=== PATIENT | female | born 1945 | race Caucasian/White ===

== ENCOUNTER 2016-07-16 19:48 | Inpatient (IN) | payer MEDICARE, OTHER ==
[~2016-07-16] VITALS: Ht 160 cm; Wt 55.0 kg
--- NOTE | 2016-07-16 20:27 | PHYS DOC ---
Past Medical History Past Medical History: Other Additional Past Medical Histor: macular degeneration Past Surgical History: No Surgical History Alcohol Use: None Drug Use: None Adult General Chief Complaint Chief Complaint: MECHANICAL FALL HPI HPI Patient is a 71 year old female who presents by EMS for mechanical fall with abrasions to her knees. She could not get up, so she crawled to her phone and called her family who called EMS for her. She denies pain, LOC, headache, neck pain, chest pain, dyspnea, abdominal pain, dizziness, numbness, tingling, focal weakness, dysuria, n/v, f/c, diarrhea. States she is minimally active at baseline and is becoming more weak and was recommended PT by her PCP recently. Family is at bedside and very concerned for her safety at home as she lives alone. They have been trying to get her to seek help or physical therapy for some time, but she has been resistant. Review of Systems Review of Systems Constitutional: Denies fever or chills [] Eyes: Denies change in visual acuity, redness, or eye pain [] HENT: Denies nasal congestion or sore throat [] Respiratory: Denies cough or shortness of breath [] Cardiovascular: No additional information not addressed in HPI [] GI: Denies abdominal pain, nausea, vomiting, bloody stools or diarrhea [] : Denies dysuria or hematuria [] Musculoskeletal: Denies back pain or joint pain [] Integument: Denies rash or skin lesions [] Neurologic: Denies headache, focal weakness or sensory changes [] Endocrine: Denies polyuria or polydipsia [] Allergies Allergies Allergies Coded Allergies Type Severity Reaction Last Updated Verified No Known Drug Allergies 07/16/16 No Physical Exam Physical Exam Constitutional: Well developed, well nourished, no acute distress, non-toxic appearance. [] HENT: Normocephalic, atraumatic, bilateral external ears normal, oropharynx moist, no oral exudates, nose normal. [] Eyes: PERRLA, EOMI. [] Neck: Normal range of motion, no tenderness, supple. [] Cardiovascular:Heart rate regular rhythm [] Lungs & Thorax: Bilateral breath sounds clear to auscultation [] Abdomen: Bowel sounds normal, soft, no tenderness. [] Skin: Warm, dry, no erythema, no rash. [] Back: No tenderness, no CVA tenderness. [] Extremities: No tenderness, ROM intact, no edema. Has erythema to bilateral knees with small area of nonbleeding abrasion to right knee [] Neurologic: Alert and oriented X 3, normal motor function, normal sensory function, no focal deficits noted. [] Psychologic: Affect normal, judgement normal, mood normal. [] Current Patient Data Vital Signs Vital Signs Date Time Temp Pulse Resp B/P Pulse Ox O2 Delivery O2 Flow Rate FiO2 07/16/16 21:30 70 16 116/59 96 Room Air 07/16/16 19:55 97.6 97.6 Lab Values Laboratory Tests Test 07/16/16 20:30 07/16/16 21:00 White Blood Count 16.9x10^3/uL (4.0-11.0) H Red Blood Count 4.44x10^6/uL (3.50-5.40) Hemoglobin 12.8g/dL (12.0-15.5) Hematocrit 39.6% (36.0-47.0) Mean Corpuscular Volume 89fL (79-100) Mean Corpuscular Hemoglobin 29pg (25-35) Mean Corpuscular Hemoglobin Concent 32g/dL (31-37) Red Cell Distribution Width 14.3% (11.5-14.5) Platelet Count 268x10^3/uL (140-400) Neutrophils (%) (Auto) 85% (31-73) H Lymphocytes (%) (Auto) 8% (24-48) L Monocytes (%) (Auto) 6% (0-9) Eosinophils (%) (Auto) 0% (0-3) Basophils (%) (Auto) 0% (0-3) Neutrophils # (Auto) 14.4x10^3uL (1.8-7.7) H Lymphocytes # (Auto) 1.4x10^3/uL (1.0-4.8) Monocytes # (Auto) 1.0x10^3/uL (0.0-1.1) Eosinophils # (Auto) 0.0x10^3/uL (0.0-0.7) Basophils # (Auto) 0.1x10^3/uL (0.0-0.2) Segmented Neutrophils % 73% (35-66) H Band Neutrophils % 13% (0-9) H Lymphocytes % 9% (24-48) L Monocytes % 4% (0-10) Basophils % 1% (0-3) Platelet Estimate Adequate (ADEQUATE) Sodium Level 144mmol/L (136-145) Potassium Level 3.8mmol/L (3.5-5.1) Chloride Level 106mmol/L (98-107) Carbon Dioxide Level 26mmol/L (21-32) Anion Gap 12 (6-14) Blood Urea Nitrogen 28mg/dL (7-20) H Creatinine 1.3mg/dL (0.6-1.0) H Estimated GFR (Cockcroft-Gault) 40.4 Glucose Level 132mg/dL (70-99) H Calcium Level 9.5mg/dL (8.5-10.1) Urine Collection Type Unknown Urine Color Yellow Urine Clarity Clear Urine pH 5.5 Urine Specific [place] 1.020 Urine Protein Negativemg/dL (NEG-TRACE) Urine Glucose (UA) Negativemg/dL (NEG) Urine Ketones (Stick) Tracemg/dL (NEG) Urine Blood Trace (NEG) Urine Nitrite Negative (NEG) Urine Bilirubin Negative (NEG) Urine Urobilinogen Dipstick 0.2mg/dL (0.2 mg/dL) Urine Leukocyte Esterase Small (NEG) Urine RBC 3-5/HPF (0-2) Urine WBC 5-10/HPF (0-4) Urine Squamous Epithelial Cells Mod/LPF Urine Transitional Epithelial Cells Few/LPF Urine Bacteria 0/HPF (0-FEW) Urine Hyaline Casts Moderate/HPF Urine Mucus Mod/LPF Laboratory Tests 07/16/16 20:30 Laboratory Tests 07/16/16 20:30 EKG EKG EKG as interpreted by me as normal sinus rhythm, rate 88, no ST-T changes, normal intervals, no ectopy Course & Med Decision Making Course & Med Decision Making Pertinent Labs and Imaging studies reviewed. (See chart for details) Workup is unremarkable. She is unable to ambulate under her own power. Will admit for patient safety concern and PT/OT evaluation. Discussed with Dr. Porter, who agrees to admit. Dragon Disclaimer Dragon Disclaimer This electronic medical record was generated, in whole or in part, using a voice recognition dictation system. Departure Departure Impression: Primary Impression: Generalized weakness Disposition: ADMITTED INPATIENT Condition: STABLE Arie GIVENS MD Jul 16, 2016 20:27
[2016-07-16 20:47] LABS: BASO # 0.1 x10^3/uL (0.0-0.2); BASO % 0 % (0-3); EOS % 0 % (0-3); HEMATOCRIT 39.6 % (36.0-47.0); HEMOGLOBIN 12.8 g/dL (12.0-15.5); LYMPH # 1.4 x10^3/uL (1.0-4.8); LYMPH % 8 % (24-48); MEAN CORPUSCULAR HEMOGLOBIN 29 pg (25-35); MEAN CORPUSCULAR HGB CONC 32 g/dL (31-37); MEAN CORPUSCULAR VOLUME 89 fL (79-100); MONO % 6 % (0-9); NEUT % 85 % (31-73); PLATELET COUNT 268 x10^3/uL (140-400); RED BLOOD COUNT 4.44 x10^6/uL (3.50-5.40); RED CELL DISTRIBUTION WIDTH 14.3 % (11.5-14.5); WHITE BLOOD COUNT 16.9 x10^3/uL (4.0-11.0)
[2016-07-16 20:56] LABS: CALCIUM 9.5 mg/dL (8.5-10.1); CREATININE 1.3 mg/dL (0.6-1.0); GFR 40.4; POTASSIUM 3.8 mmol/L (3.5-5.1)
[2016-07-16 21:16] LABS: BILIRUBIN,URINE NEGATIVE (NEG); GLUCOSE,URINE NEGATIVE (NEG); NITRITE,URINE NEGATIVE (NEG); PH,URINE 5.5; PROTEIN,URINE NEGATIVE (NEG-TRACE); UROBILINOGEN,URINE 0.2 mg/dL (0.2 mg/dL)
[2016-07-16 21:29] LABS: BACTERIA,URINE 0 /HPF (0-FEW); SQUAMOUS EPITHELIAL CELL,UR MOD /LPF
[2016-07-16 21:36] LABS: % BASOS 1 % (0-3); PLT ESTIMATE ADEQUATE (ADEQUATE)
[2016-07-16] MEDS ORDERED: NEOMY/BACITR/POLYMYXIN OINT PACKET. TP ONE (21:45)
[2016-07-16 22:20] VITALS: BP 119/55
[2016-07-16] MEDS ORDERED: ACETAMINOPHEN 325 MG TABLET. PO PRN (22:30)
[2016-07-16] MEDS ORDERED: ONDANSETRON PF 4 MG/2 ML VIAL. IV PRN (22:30)
[2016-07-17] MEDS ORDERED: MULT1TAB52 PO (00:39)
[2016-07-17 02:50] VITALS: BP 116/67
--- NOTE | 2016-07-17 06:33 | EKG ---
[facility] [address] [place] [address] Test Date: 2016-07-16 Test Time: 19:55:33 Pat Name: MESSI BISWAS Department: Room: Gender: F [employer] D[employer]: : 1945 Requested By: Arie GIVENS Order Number: [id number] Reading MD: Measurements Intervals [place] Rate: 88 P: 44 [place]: 138 QRS: 63 QRSD: 68 T: 42 QT: 360 QTc: 439 Interpretive Statements SINUS RHYTHM RI6.01 Unconfirmed report No previous ECG available for comparison
[2016-07-17 07:00] VITALS: BP 119/70
--- NOTE | 2016-07-17 07:52 | PDOC ---
Provider Note Provider Note [id number] ALIS BREWSTER MD Jul 17, 2016 07:52
--- NOTE | 2016-07-17 08:48 | HP ---
ADMIT DATE: CHIEF COMPLAINT: Weakness after a fall. HISTORY OF PRESENT ILLNESS: A 71-year-old white female, who was last seen in our office in March 2016 with generalized weakness. MRI of the brain showed no acute change and laboratory studies were unremarkable at that time, but she has had increasing immobility, weakness and difficulty caring for herself. She has macular degeneration, walks very slowly and limited fashion because of the visual handicap. She felt, was unable to get up and brought by ambulance and admitted for evaluation and disposition ____ progressive weakness. There has been an ongoing cough, but no hemoptysis, fever, chills, vomiting, diarrhea, pain, confusion or other symptoms. PAST MEDICAL HISTORY: None. MEDICATIONS: None. ALLERGIES: None. PAST SURGICAL HISTORY: No known surgery. LABORATORY STUDIES: On 03/2016, were normal. MRI was reported unremarkable except for microvascular changes. SOCIAL HISTORY: She has been smoker most of her adult life. She is , lives alone. Nondrinker to my knowledge. FAMILY HISTORY: Unremarkable. REVIEW OF SYSTEMS: No other known problems. OBJECTIVE: ENT: She has dentures in place. Eyes, ears and pharynx normal. NECK: Revealed no carotid bruits, nodes, thyroid enlargement or masses. LUNGS: Clear with decreased breath sounds. No wheezing or tachypnea. CARDIOVASCULAR: Regular rate. No irregular beat, murmur or tachycardia. BREASTS: Not examined. ABDOMEN: Benign, soft, nontender. EXTREMITIES: Good pedal and radial pulses, 1+ clubbing. No joint or skin lesions. SKIN: Turgor mildly decreased. NEUROLOGIC: She moves all extremities. She has no obvious cerebellar dysfunction. Cranial nerves 2-12 appear to be intact. She knows the month, year, and location and responds appropriately. She is mildly weak in all 4 extremities. No parkinsonian stiffness is noted, but she does have one of the decreased vocal response and mild dysphonia, reflexes are mildly diminished, not hyperactive. ASSESSMENT: Generalized progressive weakness and clinically has chronic obstructive pulmonary disease and macular degeneration. PLAN: Chest x-ray to make sure there is no underlying neoplasm, leading to the paraneoplastic syndrome. Vitamin D level and will give supplemental for vitamin D for now and antisocial disposition as well. LAIS BREWSTER MD DR: EUGENIO/laura JOB#: [id number] / [id number]
[2016-07-17] MEDS: MULTIVITAMIN with MINERAL TABLET. PO SCH ×2 (08:59→09:06)
[2016-07-17] MEDS ORDERED: ERGOCALCIFEROL (VITAMIN D2) 50,000 UNIT CAPSULE PO SCH (09:00)
--- NOTE | 2016-07-17 09:33 | RAD ---
EXAM: Chest one view. HISTORY: Cough, weakness, smoking history. COMPARISON: None. FINDINGS: A frontal view of the chest is obtained. There are no confluent infiltrates. There is no pneumothorax or pleural effusion. The heart is not enlarged. There are atherosclerotic calcifications of the aorta. IMPRESSION: 1. No confluent infiltrates.
[2016-07-17 10:45] VITALS: BP 108/63
[2016-07-17 14:43] VITALS: BP 115/70
[2016-07-17 19:00] VITALS: BP 99/51
[2016-07-17 23:00] VITALS: BP 105/42
[2016-07-18 03:00] VITALS: BP 133/61
[2016-07-18 07:00] VITALS: BP 112/60
[2016-07-18 11:30] VITALS: BP 107/66
[2016-07-18 15:19] VITALS: BP 111/63
[2016-07-18 19:40] VITALS: BP 100/58
--- NOTE | 2016-07-18 21:44 | PDOC ---
GENERAL General: vss and afebrile. awake and alert and minimizes ambulatory difficulties. Therapy recommends snu at id. Elevated wbc on admission and a cough that has been present for a year or so. will ask pulmonary opinion as I can't explain leukocytosis and has normal cxr and urine eval. otherwise same. Problems: VITAL SIGNS Vital Signs: Vital Signs Date Time Temp Pulse Resp B/P Pulse Ox O2 Delivery O2 Flow Rate FiO2 07/18/16 20:00 Room Air 07/18/16 19:40 97.8 67 18 100/58 95 97.8 I & O I & O Intake and Output 07/18/16 07:00 Intake Total 358 ml Output Total 550 ml Balance -192 ml Intake Oral 358 ml Output Urine Total 550 ml ALLERGIES Allergies: Allergies Coded Allergies Type Severity Reaction Last Updated Verified No Known Drug Allergies 07/16/16 No MEDS Medications: Current Medications Medications (Trade) Dose Ordered Sig/Ezekiel Start Time Stop Time Status Last Admin Dose Admin Acetaminophen (Tylenol) 650 mg PRN Q4HRS PRN 07/16/16 22:30 07/17/16 22:29 DC Ergocalciferol (Vitamin D2) 50,000 unit Fr 07/17/16 09:00 07/17/16 08:59 50,000 UNIT Multivitamins (Thera M Plus) 1 tab DAILY 07/17/16 09:00 07/17/16 09:06 1 TAB Neomycin/ Polymyxin/ Bacitracin (Triple Antibiotic Ointment) 1 pkt 1X ONCE 07/16/16 21:45 07/16/16 21:47 DC 07/16/16 21:56 1 PKT Ondansetron HCl (Zofran) 4 mg PRN Q8HRS PRN 07/16/16 22:30 07/17/16 22:29 DC MELISSA CARRILLO MD Jul 18, 2016 21:44
[2016-07-18 23:45] VITALS: BP 105/62
[2016-07-19 03:31] VITALS: BP 112/56
[2016-07-19 05:39] LABS: BASO # 0.1 x10^3/uL (0.0-0.2); BASO % 1 % (0-3); EOS % 1 % (0-3); HEMATOCRIT 39.7 % (36.0-47.0); HEMOGLOBIN 13.1 g/dL (12.0-15.5); LYMPH # 3.3 x10^3/uL (1.0-4.8); LYMPH % 38 % (24-48); MEAN CORPUSCULAR HEMOGLOBIN 29 pg (25-35); MEAN CORPUSCULAR HGB CONC 33 g/dL (31-37); MEAN CORPUSCULAR VOLUME 89 fL (79-100); MONO % 8 % (0-9); NEUT % 52 % (31-73); PLATELET COUNT 244 x10^3/uL (140-400); RED BLOOD COUNT 4.46 x10^6/uL (3.50-5.40); RED CELL DISTRIBUTION WIDTH 14.3 % (11.5-14.5); WHITE BLOOD COUNT 8.8 x10^3/uL (4.0-11.0)
[2016-07-19 06:03] LABS: ALBUMIN/GLOBULIN RATIO 0.8 (1.0-1.7); CALCIUM 8.8 mg/dL (8.5-10.1); CREATININE 0.7 mg/dL (0.6-1.0); GFR 82.5; POTASSIUM 4.1 mmol/L (3.5-5.1); TOTAL BILIRUBIN 0.4 mg/dL (0.2-1.0); TOTAL PROTEIN 6.6 g/dL (6.4-8.2)
[2016-07-19 07:00] VITALS: BP 132/69
[2016-07-19] MEDS: MULTIVITAMIN with MINERAL TABLET. PO SCH (08:08)
--- NOTE | 2016-07-19 10:48 | PDOC ---
GENERAL General: vss and afebrile. wbc decreased to 8.8K. awake and alert. on further questioning had had increased difficulty with walking, talking, and writing for last year or so. will ask for neuro input and await pulm input on cough. Problems: VITAL SIGNS Vital Signs: Vital Signs Date Time Temp Pulse Resp B/P Pulse Ox O2 Delivery O2 Flow Rate FiO2 07/19/16 07:00 97.0 90 16 132/69 96 Room Air 97.0 I & O I & O Intake and Output 07/19/16 07:00 Intake Total 360 ml Output Total 1 ml Balance 359 ml Intake Oral 360 ml Stool Total 1 ml # Bowel Movements 1 ALLERGIES Allergies: Allergies Coded Allergies Type Severity Reaction Last Updated Verified No Known Drug Allergies 07/16/16 No MEDS Medications: Current Medications Medications (Trade) Dose Ordered Sig/Ezekiel Start Time Stop Time Status Last Admin Dose Admin Acetaminophen (Tylenol) 650 mg PRN Q4HRS PRN 07/16/16 22:30 07/17/16 22:29 DC Ergocalciferol (Vitamin D2) 50,000 unit Fr 07/17/16 09:00 07/17/16 08:59 50,000 UNIT Multivitamins (Thera M Plus) 1 tab DAILY 07/17/16 09:00 07/19/16 08:08 1 TAB Neomycin/ Polymyxin/ Bacitracin (Triple Antibiotic Ointment) 1 pkt 1X ONCE 07/16/16 21:45 07/16/16 21:47 DC 07/16/16 21:56 1 PKT Ondansetron HCl (Zofran) 4 mg PRN Q8HRS PRN 07/16/16 22:30 07/17/16 22:29 DC LAB Lab: Laboratory Tests Test 07/19/16 04:50 White Blood Count 8.8x10^3/uL (4.0-11.0) Red Blood Count 4.46x10^6/uL (3.50-5.40) Hemoglobin 13.1g/dL (12.0-15.5) Hematocrit 39.7% (36.0-47.0) Mean Corpuscular Volume 89fL (79-100) Mean Corpuscular Hemoglobin 29pg (25-35) Mean Corpuscular Hemoglobin Concent 33g/dL (31-37) Red Cell Distribution Width 14.3% (11.5-14.5) Platelet Count 244x10^3/uL (140-400) Neutrophils (%) (Auto) 52% (31-73) Lymphocytes (%) (Auto) 38% (24-48) Monocytes (%) (Auto) 8% (0-9) Eosinophils (%) (Auto) 1% (0-3) Basophils (%) (Auto) 1% (0-3) Neutrophils # (Auto) 4.5x10^3uL (1.8-7.7) Lymphocytes # (Auto) 3.3x10^3/uL (1.0-4.8) Monocytes # (Auto) 0.7x10^3/uL (0.0-1.1) Eosinophils # (Auto) 0.1x10^3/uL (0.0-0.7) Basophils # (Auto) 0.1x10^3/uL (0.0-0.2) Sodium Level 146mmol/L (136-145) Potassium Level 4.1mmol/L (3.5-5.1) Chloride Level 110mmol/L (98-107) Carbon Dioxide Level 27mmol/L (21-32) Anion Gap 9 (6-14) Blood Urea Nitrogen 24mg/dL (7-20) Creatinine 0.7mg/dL (0.6-1.0) Estimated GFR (Cockcroft-Gault) 82.5 BUN/Creatinine Ratio 34 (6-20) Glucose Level 99mg/dL (70-99) Calcium Level 8.8mg/dL (8.5-10.1) Total Bilirubin 0.4mg/dL (0.2-1.0) Aspartate Amino Transf (AST/SGOT) 67U/L (15-37) Alanine Aminotransferase (ALT/SGPT) 42U/L (14-59) Alkaline Phosphatase 63U/L (46-116) Total Protein 6.6g/dL (6.4-8.2) Albumin 3.0g/dL (3.4-5.0) Albumin/Globulin Ratio 0.8 (1.0-1.7) MELISSA CARRILLO MD Jul 19, 2016 10:48
[2016-07-19 11:00] VITALS: BP 109/54
--- NOTE | 2016-07-19 11:26 | PDOC ---
Provider Note Provider Note dictated ZOLTAN VELARDE MD Jul 19, 2016 11:26
--- NOTE | 2016-07-19 11:52 | CONS ---
DATE OF CONSULTATION: ATTENDING PHYSICIAN: Dr. Porter. REASON FOR CONSULTATION: COPD. HISTORY OF PRESENT ILLNESS: The patient is a 71-year-old female who smoked for 45 to 50 years. She smokes cigars. She was brought into the hospital with generalized weakness. MRI of the brain previously had shown no acute abnormalities. Her chest x-ray was clear. She denies any shortness of breath or chest pain. She said she has a mild cough. No fever, no chills, no vomiting, no diarrhea. I have reviewed her imaging studies, and her chest x-ray did not show any acute infiltrates. Consultation was requested for further evaluation and management. Her white cell count initially was high at 16.9, and now it is 8.8. PAST MEDICAL HISTORY: Significant for COPD, unknown FEV1. PAST SURGICAL HISTORY: No recent surgeries. ALLERGIES: None. CURRENT MEDICATIONS: Reviewed as listed in the MRAD. REVIEW OF SYSTEMS: Twelve-point systems were obtained, pertinent positives discussed in history of present illness, otherwise noncontributory. All systems that were negative were reviewed as well. SOCIAL HISTORY: Smoked cigars for 50 years. PHYSICAL EXAMINATION: GENERAL: She is awake, following commands. VITAL SIGNS: Blood pressure stable, afebrile, pulse oximetry 96% on room air. NECK: Supple. LUNGS: Diminished breath sounds. No crackles, no wheezes. CARDIOVASCULAR: Regular rate. ABDOMEN: Soft. EXTREMITIES: With no pitting edema. LABORATORY DATA: Reviewed. Sodium 146, potassium 4.1, BUN 24, and creatinine 0.7. This is much improved since admission. White cell count 8.8, hemoglobin 13.1, and platelets are 244. IMPRESSION: 1. Chronic obstructive pulmonary disease seems to be clinically compensated. Unknown FEV1. She smoked cigars for 45 to 50 years. 2. Generalized weakness requiring hospitalization, probably related to dehydration. Her BUN and creatinine were abnormal on admission, which is now improved with hydration. 3. Chest x-ray with no evidence of any lung mass. RECOMMENDATIONS: 1. Add bronchodilators. 2. PFTs as an outpatient. 3. No further recommendation from a pulmonary standpoint. Discharge planning per PCP. ZOLTAN VELARDE MD DR: LUIS A/laura JOB#: [id number] / [id number] MTDD
[2016-07-19] MEDS: IPRATRPIUM/ALBUTEROL 0.5/2.5MG 3 ML NEBU. NEB SCH ×3 (12:45→19:23)
--- NOTE | 2016-07-19 12:59 | PDOC2 ---
NEUROLOGY CONSULT Date of Admission Date of Admission DATE: 07/19/16 TIME: 12:48 Reason for Consult Reason for Consult: Dysarthria, gait disorder Referring Physician Referring Physician: Dr. Saeed PCP: Dr. Porter Source Source: Chart review, Patient History of Present Illness History of Present Illness The patient is a 71-year-old right-handed female admitted for frequent falls as well as COPD. She says that she has been having trouble with speaking, writing, swallowing, and walking for up to the last year. She had an MRI of the brain in March which was reportedly negative. She has never seen a neurologist. She denies any history of stroke, seizure, head injury, or family history of neurological disease. The symptoms have been slowly progressing, there is not one single time of onset. There is no diurnal fluctuations such as from neuromuscular junction disease. She denies any cognitive problems. She lives in assisted living and does all of her own cooking, cleaning, shopping, and finances. Past Medical History Pulmonary: COPD ENT: Other (macular degneration) Past Surgical History Past Surgical History: No pertinent history Family History Family History: No pertinent hx Social History Social History , smokes cigars, no alcohol Current Medications Current Medications Current Medications Neomycin/ Polymyxin/ Bacitracin (Triple Antibiotic Ointment) 1 pkt 1X ONCE TP Last administered on 07/16/16 21:56; Start 07/16/16 at 21:45; Stop 07/16/16 at 21: 47; Status DC Ondansetron HCl (Zofran) 4 mg PRN Q8HRS PRN IV NAUSEA/VOMITING; Start 07/16/16 at 22:30; Stop 07/17/16 at 22:29; Status DC Acetaminophen (Tylenol) 650 mg PRN Q4HRS PRN PO FEVER; Start 07/16/16 at 22:30; Stop 07/17/16 at 22:29; Status DC Multivitamins (Thera M Plus) 1 tab DAILY PO Last administered on 07/19/16 08: 08; Start 07/17/16 at 09:00 Ergocalciferol (Vitamin D2) 50,000 unit Fr PO Last administered on 07/17/16 08 :59; Start 07/17/16 at 09:00 Albuterol/ Ipratropium (Duoneb) 3 ml RTQID NEB ; Start 07/19/16 at 12:00 Active Scripts Active Reported Multivitamins (Multivitamin) 1 Each Tablet 1 Tab PO DAILY Allergies Allergies: Coded Allergies: No Known Drug Allergies (Unverified , 07/16/16) ROS Review of System Patient denies fevers, chills, weight loss, dyspnea, angina, abdominal pain, change in bowels, or dysuria. 14 point review of systems is negative. Physical Exam Physical Examination PHYSICAL EXAMINATION: Vital signs: see above. General appearance is normal and in no acute distress. HEENT: Normocephalic and nontraumatic. Eyes, nose, ears, and throat are unremarkable. Neck is supple. No lymphadenopathy. No bruits are heard over the carotid artery. No crepitus. NEUROLOGICAL EXAMINATION: Mental Status Examination: Alert. Oriented to place and person, knows the month and year. Answers questions and follows commends. Speech is dysarthric, she did have trouble remembering 3 of 3 objects at 3 minutes but finally did get the third one correct. She has trouble with serial sevens. Pupils are equal round and reactive to light and accommodation. Extraocular movements are intact. Visual field exam shows no defect on the direct confrontation. No motor or sensory deficits on the facial exam. Uvula in the midline and the soft palate elevated symmetrically. No deviation of the tongue to any direction. Gross hearing is normal. Shoulder shrug normal. Muscle tone is normal. Muscle strength is 5. Deep tendon reflexes are 1+ all around. There are bilateral grasp reflexes. Plantar reflex is with flexion response bilaterally. [id number] test performance is accurate. Alternative movements are accurate. Gait is apraxic. Sensory exam shows no deficits. No cerebellar signs are elicited. Vitals VITALS Vital Signs Date Time Temp Pulse Resp B/P Pulse Ox O2 Delivery O2 Flow Rate FiO2 07/19/16 11:00 97.7 76 16 109/54 96 Room Air 97.7 Labs Labs Laboratory Tests Test 07/19/16 04:50 White Blood Count 8.8x10^3/uL (4.0-11.0) Red Blood Count 4.46x10^6/uL (3.50-5.40) Hemoglobin 13.1g/dL (12.0-15.5) Hematocrit 39.7% (36.0-47.0) Mean Corpuscular Volume 89fL (79-100) Mean Corpuscular Hemoglobin 29pg (25-35) Mean Corpuscular Hemoglobin Concent 33g/dL (31-37) Red Cell Distribution Width 14.3% (11.5-14.5) Platelet Count 244x10^3/uL (140-400) Neutrophils (%) (Auto) 52% (31-73) Lymphocytes (%) (Auto) 38% (24-48) Monocytes (%) (Auto) 8% (0-9) Eosinophils (%) (Auto) 1% (0-3) Basophils (%) (Auto) 1% (0-3) Neutrophils # (Auto) 4.5x10^3uL (1.8-7.7) Lymphocytes # (Auto) 3.3x10^3/uL (1.0-4.8) Monocytes # (Auto) 0.7x10^3/uL (0.0-1.1) Eosinophils # (Auto) 0.1x10^3/uL (0.0-0.7) Basophils # (Auto) 0.1x10^3/uL (0.0-0.2) Sodium Level 146mmol/L (136-145) Potassium Level 4.1mmol/L (3.5-5.1) Chloride Level 110mmol/L (98-107) Carbon Dioxide Level 27mmol/L (21-32) Anion Gap 9 (6-14) Blood Urea Nitrogen 24mg/dL (7-20) Creatinine 0.7mg/dL (0.6-1.0) Estimated GFR (Cockcroft-Gault) 82.5 BUN/Creatinine Ratio 34 (6-20) Glucose Level 99mg/dL (70-99) Calcium Level 8.8mg/dL (8.5-10.1) Total Bilirubin 0.4mg/dL (0.2-1.0) Aspartate Amino Transf (AST/SGOT) 67U/L (15-37) Alanine Aminotransferase (ALT/SGPT) 42U/L (14-59) Alkaline Phosphatase 63U/L (46-116) Total Protein 6.6g/dL (6.4-8.2) Albumin 3.0g/dL (3.4-5.0) Albumin/Globulin Ratio 0.8 (1.0-1.7) Laboratory Tests Test 07/19/16 04:50 White Blood Count 8.8x10^3/uL (4.0-11.0) Red Blood Count 4.46x10^6/uL (3.50-5.40) Hemoglobin 13.1g/dL (12.0-15.5) Hematocrit 39.7% (36.0-47.0) Mean Corpuscular Volume 89fL (79-100) Mean Corpuscular Hemoglobin 29pg (25-35) Mean Corpuscular Hemoglobin Concent 33g/dL (31-37) Red Cell Distribution Width 14.3% (11.5-14.5) Platelet Count 244x10^3/uL (140-400) Neutrophils (%) (Auto) 52% (31-73) Lymphocytes (%) (Auto) 38% (24-48) Monocytes (%) (Auto) 8% (0-9) Eosinophils (%) (Auto) 1% (0-3) Basophils (%) (Auto) 1% (0-3) Neutrophils # (Auto) 4.5x10^3uL (1.8-7.7) Lymphocytes # (Auto) 3.3x10^3/uL (1.0-4.8) Monocytes # (Auto) 0.7x10^3/uL (0.0-1.1) Eosinophils # (Auto) 0.1x10^3/uL (0.0-0.7) Basophils # (Auto) 0.1x10^3/uL (0.0-0.2) Sodium Level 146mmol/L (136-145) Potassium Level 4.1mmol/L (3.5-5.1) Chloride Level 110mmol/L (98-107) Carbon Dioxide Level 27mmol/L (21-32) Anion Gap 9 (6-14) Blood Urea Nitrogen 24mg/dL (7-20) Creatinine 0.7mg/dL (0.6-1.0) Estimated GFR (Cockcroft-Gault) 82.5 BUN/Creatinine Ratio 34 (6-20) Glucose Level 99mg/dL (70-99) Calcium Level 8.8mg/dL (8.5-10.1) Total Bilirubin 0.4mg/dL (0.2-1.0) Aspartate Amino Transf (AST/SGOT) 67U/L (15-37) Alanine Aminotransferase (ALT/SGPT) 42U/L (14-59) Alkaline Phosphatase 63U/L (46-116) Total Protein 6.6g/dL (6.4-8.2) Albumin 3.0g/dL (3.4-5.0) Albumin/Globulin Ratio 0.8 (1.0-1.7) Assessment/Plan Assessment/Plan Impression: 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 I find no evidence of peripheral neuropathy, radiculopathy, neuromuscular junction disease, motor neuron disease , cerebrovascular disease, but myelopathy is still possible. Recommendations: Repeat brain MRI, this time with contrast Cervical MRI Additional laboratory studies. Note TSH and sedimentation rate were normal Continue rehabilitation modalities, adding on speech therapy for evaluation and treatment of both cognitive and swallowing problems. Consider correction unit placement Additional studies depending on the results of these. Thank you for letting me help with the patient's care. SABI MOFFETT MD Jul 19, 2016 12:59
[2016-07-19 15:00] VITALS: BP 110/53
[2016-07-19] MEDS: NEOMY/BACITR/POLYMYXIN OINT PACKET. TP SCH ×2 (18:30→20:13)
[2016-07-19 19:46] VITALS: BP 103/57
[2016-07-19 23:07] VITALS: BP 99/53
[2016-07-20 03:50] VITALS: BP 102/61
[2016-07-20 07:00] VITALS: BP 120/66
[2016-07-20] MEDS: IPRATRPIUM/ALBUTEROL 0.5/2.5MG 3 ML NEBU. NEB SCH ×3 (07:30→16:00)
--- NOTE | 2016-07-20 08:34 | PDOC ---
Provider Note Provider Note labs ok, no new sxs- no overt hyperactive DTR- mri brain/ cerv spine pending- no new meds- dc plan pending re family decision- cxr clear re chronic cough, smoker ALIS BREWSTER MD Jul 20, 2016 08:34
[2016-07-20] MEDS: NEOMY/BACITR/POLYMYXIN OINT PACKET. TP SCH ×2 (09:08→20:31)
[2016-07-20] MEDS: MULTIVITAMIN with MINERAL TABLET. PO SCH (09:08)
--- NOTE | 2016-07-20 10:00 | PDOC ---
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 I find no evidence of peripheral neuropathy, radiculopathy, neuromuscular junction disease, motor neuron disease , cerebrovascular disease, but myelopathy is still possible. Plan Await tests Continue rehabilitation modalities, Consider [facility] unit placement Additional studies depending on the results of these. Subjective No complaints Objective Vital Signs Date Time Temp Pulse Resp B/P Pulse Ox O2 Delivery O2 Flow Rate FiO2 07/20/16 08:00 Room Air 07/20/16 07:32 97 07/20/16 07:00 97.4 79 17 120/66 97.4 Intake and Output 07/20/16 07:00 Intake Total 725 ml Output Total 1151 ml Balance -426 ml Intake Oral 725 ml Output Urine Total 1150 ml Stool Total 1 ml PHYSICAL EXAM Alert. Oriented to time, place and person. Spastic dysarthria, maybe a component of scanning speech PERRL. EOMI. CN: no focal findings. Muscle tone: normal. Muscle strength: 5/5 DTR: 1+. Also has bilateral grasp reflexes Plantar reflex: flexor Gait: not examined. Sensory exam: no abnormal findings. No cerebellar signs elicited. Review of Relevant I have reviewed the following items ale (where applicable) has been applied. Labs Laboratory Tests Test 07/19/16 04:50 White Blood Count 8.8x10^3/uL (4.0-11.0) Red Blood Count 4.46x10^6/uL (3.50-5.40) Hemoglobin 13.1g/dL (12.0-15.5) Hematocrit 39.7% (36.0-47.0) Mean Corpuscular Volume 89fL (79-100) Mean Corpuscular Hemoglobin 29pg (25-35) Mean Corpuscular Hemoglobin Concent 33g/dL (31-37) Red Cell Distribution Width 14.3% (11.5-14.5) Platelet Count 244x10^3/uL (140-400) Neutrophils (%) (Auto) 52% (31-73) Lymphocytes (%) (Auto) 38% (24-48) Monocytes (%) (Auto) 8% (0-9) Eosinophils (%) (Auto) 1% (0-3) Basophils (%) (Auto) 1% (0-3) Neutrophils # (Auto) 4.5x10^3uL (1.8-7.7) Lymphocytes # (Auto) 3.3x10^3/uL (1.0-4.8) Monocytes # (Auto) 0.7x10^3/uL (0.0-1.1) Eosinophils # (Auto) 0.1x10^3/uL (0.0-0.7) Basophils # (Auto) 0.1x10^3/uL (0.0-0.2) Sodium Level 146mmol/L (136-145) Potassium Level 4.1mmol/L (3.5-5.1) Chloride Level 110mmol/L (98-107) Carbon Dioxide Level 27mmol/L (21-32) Anion Gap 9 (6-14) Blood Urea Nitrogen 24mg/dL (7-20) Creatinine 0.7mg/dL (0.6-1.0) Estimated GFR (Cockcroft-Gault) 82.5 BUN/Creatinine Ratio 34 (6-20) Glucose Level 99mg/dL (70-99) Calcium Level 8.8mg/dL (8.5-10.1) Total Bilirubin 0.4mg/dL (0.2-1.0) Aspartate Amino Transf (AST/SGOT) 67U/L (15-37) Alanine Aminotransferase (ALT/SGPT) 42U/L (14-59) Alkaline Phosphatase 63U/L (46-116) Total Protein 6.6g/dL (6.4-8.2) Albumin 3.0g/dL (3.4-5.0) Albumin/Globulin Ratio 0.8 (1.0-1.7) Microbiology 07/16/16 Urine Culture - Final, Complete 07/16/16 Urine Culture Result 1 (LORI) - Final, Complete Medications Current Medications Neomycin/ Polymyxin/ Bacitracin (Triple Antibiotic Ointment) 1 pkt 1X ONCE TP Last administered on 07/16/16t 21:56; Start 07/16/16 at 21:45; Stop 07/16/16 at 21: 47; Status DC Ondansetron HCl (Zofran) 4 mg PRN Q8HRS PRN IV NAUSEA/VOMITING; Start 07/16/16 at 22:30; Stop 07/17/16 at 22:29; Status DC Acetaminophen (Tylenol) 650 mg PRN Q4HRS PRN PO FEVER; Start 07/16/16 at 22:30; Stop 07/17/16 at 22:29; Status DC Multivitamins (Thera M Plus) 1 tab DAILY PO Last administered on 07/20/16 09: 08; Start 07/17/16 at 09:00 Ergocalciferol (Vitamin D2) 50,000 unit Fr PO Last administered on 07/17/16 08 :59; Start 07/17/16 at 09:00; Stop 07/20/16 at 08:34; Status DC Albuterol/ Ipratropium (Duoneb) 3 ml RTQID NEB Last administered on 07/20/16 07:30; Start 07/19/16 at 12:00 Neomycin/ Polymyxin/ Bacitracin (Triple Antibiotic Ointment) 1 pkt BID TP Last administered on 07/20/16 09:08; Start 07/19/16 at 18:30 Active Scripts Active Reported Multivitamins (Multivitamin) 1 Each Tablet 1 Tab PO DAILY Vitals/I & O Vital Sign - Last 24 Hours 07/19/16 07/19/16 07/19/16 07/19/16 11:00 15:00 15:32 19:23 Temp 97.7 97.4 97.7 97.4 Pulse 76 72 Resp 16 18 B/P 109/54 110/53 Pulse Ox 96 97 99 99 O2 Delivery Room Air Room Air Room Air Room Air 07/19/16 07/19/16 07/19/16 07/20/16 19:46 20:15 23:07 03:50 Temp 98.2 97.3 97.6 98.2 97.3 97.6 Pulse 77 67 68 Resp 18 18 20 B/P 103/57 99/53 102/61 Pulse Ox 95 96 97 O2 Delivery Room Air Room Air Room Air Room Air 07/20/16 07/20/16 07/20/16 07:00 07:32 08:00 Temp 97.4 97.4 Pulse 79 Resp 17 B/P 120/66 Pulse Ox 96 97 O2 Delivery Room Air Room Air Room Air Intake and Output 07/19/16 07/19/16 07/20/16 15:00 23:00 07:00 Intake Total 725 ml 0 ml Output Total 801 ml 350 ml Balance -76 ml -350 ml SABI MOFFETT MD Jul 20, 2016 09:59
[2016-07-20 10:32] LABS: FOLATE 18.74 ng/ml (3.2-20.0)
[2016-07-20 11:00] VITALS: BP 105/66
[2016-07-20] MEDS ORDERED: GADOBUTROL 7.5 MMOL/7.5 ML VIAL IV ONE (13:15)
--- NOTE | 2016-07-20 13:20 | RAD ---
PROCEDURE MRI cervical spine without contrast HISTORY Unsteady gait, gait disorder TECHNIQUE Sagittal and axial T2, sagittal T1, sagittal STIR images were acquired of the cervical spine Contrast: None COMPARISON None FINDINGS There is motion degradation, limits accurate evaluation of the neural foramina. Cervical cord caliber is within normal limits without obvious or expansile signal abnormality, limited evaluation for subtle signal change due to motion artifact. There is moderate cervical dextroscoliosis. Cervical vertebral body stature is preserved. There is minimal grade 1 anterior spondylolisthesis at C3-4. There is mild to moderate degenerative disc disease C4-C5 and C5-C6 and minimally at C6-7. Trace posterior C5-C6 endplate edema is likely reactive/degenerative in etiology. There is no significant abnormality of the cervical medullary junction. C2-3: Spinal canal and neural foramina are adequate. C3-C4: There is fairly severe left facet degenerative change. There is minimal left uncovertebral degenerative change. Central canal is borderline 10 millimeters, very minimal narrowing of the far left lateral recess. Right neural foramen is adequate. There is at least moderate narrowing of the left neural foramen. C4-5: There is severe left facet hypertrophic change. Spinal canal and right neural foramen are adequate. There is at least moderate narrowing of the left neural foramen. C5-C6: There is buckling of the ligamentum flavum. There is posterior protrusion greatest centrally. Central canal is likely narrowed on the order of 8-9 millimeters. There is likely mild narrowing of the left neural foramen, right neural foramen probably adequate. C6-7: There is buckling of the ligamentum flavum. There is shallow posterior broad protrusion/bulge, central canal borderline 10 millimeters. Neural foramina are likely adequate. C7-T1: Spinal canal and neural foramina are adequate. IMPRESSION 1. There is mild spinal stenosis C5-C6. 2. Accurate evaluation of the neural foramina is limited due to motion degradation, suspected neural foramina compromise as stated greatest on the left at C3-C4 and C4-C5. 3. There is moderate cervical dextroscoliosis. There is minimal grade 1 anterior spondylolisthesis C3-4. 4. There is mild to moderate degenerative disc disease C4-5 and C5-C6 and to a lesser degree C6-7. 5. There is multilevel cervical facet degenerative change. Electronically signed by: Javy Rios MD (Jul 20, 2016 13:18:48)
--- NOTE | 2016-07-20 13:59 | RAD ---
PROCEDURE MRI brain without and with contrast. HISTORY Gait disorder, frontal lobe degeneration, unsteady gait with recent fall TECHNIQUE Multiplanar, multi sequential pre and post contrast MR imaging was performed of the brain. Contrast: 5 cc Gadavist COMPARISON None FINDINGS There is mild motion degradation. There is no restricted diffusion suggestive of a recent infarct or cytotoxic edema. There is no intra-axial mass effect, midline shift, extra-axial fluid collection, or nodular parenchymal or leptomeningeal enhancement. Ventricular size is within normal limits. There is mild generalized supratentorial atrophy. There is preservation of the major arterial intracranial flow voids at the skull base. There is patchy minimal anterior right ethmoid air cell mucosal thickening. 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 Cerebellar tonsils are normal in location. There is nonspecific mild heterogeneity of the marrow of non expanded clivus. There is no significant abnormality of the pituitary gland. There is mild fluid of the inferior right mastoid air cells, also tiny focus on the left. IMPRESSION 1. There is no evidence of recent infarct or abnormal intracranial enhancement. 2. There is mild generalized supratentorial atrophy. Electronically signed by: Javy Rios MD (Jul 20, 2016 13:58:33)
[2016-07-20 15:00] VITALS: BP 102/65
--- NOTE | 2016-07-20 15:53 | PDOC ---
PULMONARY PROGRESS NOTES Vitals Vital Signs Date Time Temp Pulse Resp B/P Pulse Ox O2 Delivery O2 Flow Rate FiO2 07/20/16 15:00 97.0 75 17 102/65 98 Room Air 97.0 Labs Laboratory Tests Test 07/19/16 04:50 07/20/16 04:40 White Blood Count 8.8x10^3/uL (4.0-11.0) Red Blood Count 4.46x10^6/uL (3.50-5.40) Hemoglobin 13.1g/dL (12.0-15.5) Hematocrit 39.7% (36.0-47.0) Mean Corpuscular Volume 89fL (79-100) Mean Corpuscular Hemoglobin 29pg (25-35) Mean Corpuscular Hemoglobin Concent 33g/dL (31-37) Red Cell Distribution Width 14.3% (11.5-14.5) Platelet Count 244x10^3/uL (140-400) Neutrophils (%) (Auto) 52% (31-73) Lymphocytes (%) (Auto) 38% (24-48) Monocytes (%) (Auto) 8% (0-9) Eosinophils (%) (Auto) 1% (0-3) Basophils (%) (Auto) 1% (0-3) Neutrophils # (Auto) 4.5x10^3uL (1.8-7.7) Lymphocytes # (Auto) 3.3x10^3/uL (1.0-4.8) Monocytes # (Auto) 0.7x10^3/uL (0.0-1.1) Eosinophils # (Auto) 0.1x10^3/uL (0.0-0.7) Basophils # (Auto) 0.1x10^3/uL (0.0-0.2) Sodium Level 146mmol/L (136-145) Potassium Level 4.1mmol/L (3.5-5.1) Chloride Level 110mmol/L (98-107) Carbon Dioxide Level 27mmol/L (21-32) Anion Gap 9 (6-14) Blood Urea Nitrogen 24mg/dL (7-20) Creatinine 0.7mg/dL (0.6-1.0) Estimated GFR (Cockcroft-Gault) 82.5 BUN/Creatinine Ratio 34 (6-20) Glucose Level 99mg/dL (70-99) Calcium Level 8.8mg/dL (8.5-10.1) Total Bilirubin 0.4mg/dL (0.2-1.0) Aspartate Amino Transf (AST/SGOT) 67U/L (15-37) Alanine Aminotransferase (ALT/SGPT) 42U/L (14-59) Alkaline Phosphatase 63U/L (46-116) Total Protein 6.6g/dL (6.4-8.2) Albumin 3.0g/dL (3.4-5.0) Albumin/Globulin Ratio 0.8 (1.0-1.7) Vitamin B12 Level 495pg/mL (247-911) Serum Folate 18.74ng/ml (3.2-20.0) Laboratory Tests Test 07/20/16 04:40 Vitamin B12 Level 495pg/mL (247-911) Serum Folate 18.74ng/ml (3.2-20.0) Medications Active Scripts Medications Dose Route/Sig Days Date Category Multivitamins (Multivitamin) 1 Each Tablet 1 Tab PO DAILY 07/17/16 Reported Impression . 1. Chronic obstructive pulmonary disease seems to be clinically compensated. Unknown FEV1. She smoked cigars for 45 to 50 years. 2. Generalized weakness requiring hospitalization, probably related to dehydration. Her BUN and creatinine were abnormal on admission, which is now improved with hydration. 3. Chest x-ray with no evidence of any lung mass. Plan . RECOMMENDATIONS: 1. Add bronchodilators. 2. PFTs as an outpatient. 3. No further recommendation from a pulmonary standpoint. Discharge planning per PCP. MICHELLE SANTOYO MD Jul 20, 2016 15:53
--- NOTE | 2016-07-20 17:59 | PDOC ---
PULMONARY PROGRESS NOTES Subjective does not want nebs Vitals Vital Signs Date Time Temp Pulse Resp B/P Pulse Ox O2 Delivery O2 Flow Rate FiO2 07/20/16 15:00 97.0 75 17 102/65 98 Room Air 97.0 ROS: No Nausea, No Chest Pain, No Abdominal Pain, No Increase Cough General: Alert Lungs: Clear Cardiovascular: S1, S2 Abdomen: Soft Neuro Exam: Alert Extremities: No Edema Skin: Warm, Dry Labs Laboratory Tests Test 07/19/16 04:50 07/20/16 04:40 White Blood Count 8.8x10^3/uL (4.0-11.0) Red Blood Count 4.46x10^6/uL (3.50-5.40) Hemoglobin 13.1g/dL (12.0-15.5) Hematocrit 39.7% (36.0-47.0) Mean Corpuscular Volume 89fL (79-100) Mean Corpuscular Hemoglobin 29pg (25-35) Mean Corpuscular Hemoglobin Concent 33g/dL (31-37) Red Cell Distribution Width 14.3% (11.5-14.5) Platelet Count 244x10^3/uL (140-400) Neutrophils (%) (Auto) 52% (31-73) Lymphocytes (%) (Auto) 38% (24-48) Monocytes (%) (Auto) 8% (0-9) Eosinophils (%) (Auto) 1% (0-3) Basophils (%) (Auto) 1% (0-3) Neutrophils # (Auto) 4.5x10^3uL (1.8-7.7) Lymphocytes # (Auto) 3.3x10^3/uL (1.0-4.8) Monocytes # (Auto) 0.7x10^3/uL (0.0-1.1) Eosinophils # (Auto) 0.1x10^3/uL (0.0-0.7) Basophils # (Auto) 0.1x10^3/uL (0.0-0.2) Sodium Level 146mmol/L (136-145) Potassium Level 4.1mmol/L (3.5-5.1) Chloride Level 110mmol/L (98-107) Carbon Dioxide Level 27mmol/L (21-32) Anion Gap 9 (6-14) Blood Urea Nitrogen 24mg/dL (7-20) Creatinine 0.7mg/dL (0.6-1.0) Estimated GFR (Cockcroft-Gault) 82.5 BUN/Creatinine Ratio 34 (6-20) Glucose Level 99mg/dL (70-99) Calcium Level 8.8mg/dL (8.5-10.1) Total Bilirubin 0.4mg/dL (0.2-1.0) Aspartate Amino Transf (AST/SGOT) 67U/L (15-37) Alanine Aminotransferase (ALT/SGPT) 42U/L (14-59) Alkaline Phosphatase 63U/L (46-116) Total Protein 6.6g/dL (6.4-8.2) Albumin 3.0g/dL (3.4-5.0) Albumin/Globulin Ratio 0.8 (1.0-1.7) Vitamin B12 Level 495pg/mL (247-911) Serum Folate 18.74ng/ml (3.2-20.0) Laboratory Tests Test 07/20/16 04:40 Vitamin B12 Level 495pg/mL (247-911) Serum Folate 18.74ng/ml (3.2-20.0) Medications Active Scripts Medications Dose Route/Sig Days Date Category Multivitamins (Multivitamin) 1 Each Tablet 1 Tab PO DAILY 07/17/16 Reported Impression . 1. Chronic obstructive pulmonary disease seems to be clinically compensated. Unknown FEV1. She smoked cigars for 45 to 50 years. 2. Generalized weakness 3. Chest x-ray with no evidence of any lung mass. Plan . d/c nebs will see MICHELLE GILBERT MD Jul 20, 2016 17:59
[2016-07-20 19:51] VITALS: BP 107/57
[2016-07-20 23:38] VITALS: BP 114/64
[2016-07-21 02:56] VITALS: BP 108/58
[2016-07-21 07:00] VITALS: BP 115/79
--- NOTE | 2016-07-21 08:20 | DISCH ---
DISCHARGE FINAL DIAGNOSIS Problems Medical Problems: (1) Generalized weakness Status: Acute CONDITION ON DISCHARGE: Stable SNF STAY <30 DAYS: Yes POST DISCHARGE ORDERS ACTIVITY ORDERS: No restrictions FOLLOW-UP PHYSICIAN FOLLOW-UP: ALIS Jeff MD Jul 21, 2016 08:20
--- NOTE | 2016-07-21 08:24 | PDOC ---
Provider Note Provider Note [id number] ALIS BREWSTER MD Jul 21, 2016 08:24
[2016-07-21] MEDS: NEOMY/BACITR/POLYMYXIN OINT PACKET. TP SCH (08:44)
[2016-07-21] MEDS: MULTIVITAMIN with MINERAL TABLET. PO SCH (08:44)
--- NOTE | 2016-07-21 09:21 | DS ---
DATE OF DISCHARGE: 07/21/2016 HOSPITAL SUMMARY: A 71-year-old white female admitted with progressive weakness and mild confusion and inability to care for self in the home. Chemistry profile showed a mildly elevated creatinine of 1.3, came down to 0.7 with hydration. CBC and sed rate were normal. B12, folate, and TSH were normal. Vitamin D level was borderline, leveled at 27. MRI of the brain showed normal findings with aging and general atrophy. MRI of the cervical spine did not show any overt spiral cord compression or any lesions. The chest x-ray was clear. Urine culture had only urogenital remigio present. She was treated with therapy evaluation and neurologic evaluation. Dr. Brambila feels she has a component of frontotemporal dementia, but no sign of any brain or spinal cord problems or he thinks this is certainly treatment. She has been [facility] with the insistence of her daughters and as she is no longer able to care for self safely, taking no medications aside from multivitamins. FINAL DIAGNOSES: 1. Generalized weakness secondary to deconditioning. 2. Chronic tobacco abuse. 3. Frontotemporal dementia, mild. OPERATIONS, PROCEDURES, AND COMPLICATIONS: None. CONSULTATIONS: Dr. Aparicio and Dr. Brambila. DISPOSITION: Continue daily multivitamins as they are only her current medication. She will follow up with Dr. Brambila in one month regarding her dementia, and I will see her on as needed basis. Continue tobacco avoidance or lessen her COPD component and her prognosis is guarded. ALIS BREWSTER MD DR: EUGENIO/laura JOB#: [id number] / [id number]
--- NOTE | 2016-07-21 09:21 | CONS ---
DATE OF CONSULTATION: 07/20/2016 The patient's room is 524. REQUESTING PHYSICIAN: Dr. Baker. REASON FOR CONSULTATION: Groin abscess. HISTORY OF PRESENT ILLNESS: The patient is a pleasant 20-year-old gentleman with history of morbid obesity and diabetes. He takes metformin. He states a week ago, he developed areas of right buttock cheek that was somewhat of a blister. Over time, it increased in size. He popped it, said he got bloody fluid from it, but since that time, the area is becoming more painful, red and swollen. He presented to [facility] initially and was transferred to [facility]. He was given a dose of vancomycin and clindamycin in the Emergency Room. Laboratory values were obtained; however, did not accompany him. Currently, he is lying in bed. He states he did have fever. He has no headaches, no sore throat, no sinus issues. No cough or chest pain. No nausea, vomiting, diarrhea, dysuria, frequency, or urgency. He denies any trauma to the area. No falls. No rashes. PAST MEDICAL HISTORY: Positive for morbid obesity, diabetes, hypertension. PAST SURGICAL HISTORY: Denies any past surgical history. REVIEW OF SYSTEMS: Otherwise negative except mentioned above. ALLERGIES: No known drug allergies. SOCIAL HISTORY: He is a smoker, although he states currently he is on a patch. He works IT, also goes to school and has a cat at home. FAMILY HISTORY: Positive for diabetes. CURRENT MEDICATIONS: Include vancomycin, metformin. Other meds are available and had been reviewed in the chart. PHYSICAL EXAMINATION: VITAL SIGNS: He is afebrile, temperature 97.6, pulse 94, respirations 18, blood pressure 119/82, and satting 96% on room air. CONSTITUTIONAL: He is pleasant, cooperative. He is in no acute distress. He is super morbidly obese. He wears glasses. HEENT: Pupils are equal and reactive. Oral cavity, pharynx is clear. NECK: Full. Good range of motion, no JVD. LUNGS: Clear to auscultation bilaterally. HEART: S1, S2. ABDOMEN: Morbidly obese, soft, nontender, nondistended, positive bowel sounds. EXTREMITIES: No clubbing, cyanosis, or gross edema. SKIN: Warm to touch without generalized signs of rash. His right buttock area has an area of erythema. There is induration. There is no fluctuance. There is no drainage. There is some yeast. NEUROLOGIC: Nonfocal and appropriate, moves all extremities. Affect is pleasant. LABORATORY DATA: White count 13.8, hemoglobin 12.5, platelets 264, neutrophils 73, lymphs 17, glucose 168. Creatinine of 0.9. There are no radiological studies. IMPRESSION: 1. Buttock cellulitis with induration, no clear signs of abscess at this point. 2. Leukocytosis. 3. Morbid obesity. 4. Diabetes. RECOMMENDATIONS: He has not had any complications with any staph or strep infections. Denies any ill contacts. Therefore, we will discontinue the vancomycin given this area. We will start Unasyn as well as fluconazole, and we will follow up on his response and his labs. If this area does consolidate, he may need surgery. Thank you for allowing me to participate in the patient's care. Should you have any questions, please do not hesitate to contact me. COREY MCNAMARA MD DR: KYLE/laura JOB#: [id number] / [id number]
--- NOTE | 2016-07-21 09:48 | PDOC ---
PULMONARY PROGRESS NOTES Subjective does not want nebs Vitals Vital Signs Date Time Temp Pulse Resp B/P Pulse Ox O2 Delivery O2 Flow Rate FiO2 07/21/16 07:00 97.5 72 18 115/79 97 Room Air 97.5 ROS: No Nausea, No Chest Pain, No Abdominal Pain, No Increase Cough General: Alert Lungs: Clear Cardiovascular: S1, S2 Abdomen: Soft Neuro Exam: Alert Extremities: No Edema Skin: Warm, Dry Labs Laboratory Tests Test 07/20/16 04:40 Vitamin B12 Level 495pg/mL (247-911) Serum Folate 18.74ng/ml (3.2-20.0) Medications Active Scripts Medications Dose Route/Sig Days Date Category Multivitamins (Multivitamin) 1 Each Tablet 1 Tab PO DAILY 07/17/16 Reported Impression . 1. Chronic obstructive pulmonary disease seems to be clinically compensated. Unknown FEV1. She smoked cigars for 45 to 50 years. 2. Generalized weakness 3. Chest x-ray with no evidence of any lung mass. Plan . d/c nebs will see MICHELLE GILBERT MD Jul 21, 2016 09:48
[2016-07-21 11:00] VITALS: BP 122/65
--- NOTE | 2016-07-21 11:41 | PDOC ---
PROGRESS NOTES Assessment Problems Medical Problems: (1) Generalized weakness Status: Acute Frontal temporal dementia with language difficulties, gait apraxia, grasp reflexes. MRI studies negative for structural abnormalities of the brain and cervical spine except for cerebral atrophy. Laboratory studies in remarkable as well Plan Continue rehabilitation modalities I discussed with the patient that she would be best in a fpc unit for a few weeks to get her strength back. She is resistant. She realizes that there is no one at home to take care of her. Her children both work during the day. Nonetheless she persists in the belief that she needs to go home. I term this a sign of lack of judgment from her frontal lobe dysfunction. Follow-up with me in 6 weeks. Subjective No complaints Objective Vital Signs Date Time Temp Pulse Resp B/P Pulse Ox O2 Delivery O2 Flow Rate FiO2 07/21/16 11:00 97.6 81 18 122/65 95 Room Air 97.6 Intake and Output 07/21/16 07:00 Intake Total 490 ml Output Total 1150 ml Balance -660 ml Intake Oral 490 ml Output Urine Total 1150 ml # Voids 4 # Bowel Movements 2 PHYSICAL EXAM Alert. Oriented to time, place and person. Spastic dysarthria PERRL. EOMI. CN: no focal findings. Muscle tone: normal. Muscle strength: 5/5 DTR: 1+. Also has bilateral grasp reflexes Plantar reflex: flexor Gait: not examined. Sensory exam: no abnormal findings. No cerebellar signs elicited. Review of Relevant I have reviewed the following items ale (where applicable) has been applied. Labs Laboratory Tests Test 07/20/16 04:40 Vitamin B12 Level 495pg/mL (247-911) Serum Folate 18.74ng/ml (3.2-20.0) Microbiology 07/16/16 Urine Culture - Final, Complete 07/16/16 Urine Culture Result 1 (LORI) - Final, Complete Medications Current Medications Neomycin/ Polymyxin/ Bacitracin (Triple Antibiotic Ointment) 1 pkt 1X ONCE TP Last administered on 07/16/16t 21:56; Start 07/16/16 at 21:45; Stop 07/16/16 at 21: 47; Status DC Ondansetron HCl (Zofran) 4 mg PRN Q8HRS PRN IV NAUSEA/VOMITING; Start 07/16/16 at 22:30; Stop 07/17/16 at 22:29; Status DC Acetaminophen (Tylenol) 650 mg PRN Q4HRS PRN PO FEVER; Start 07/16/16 at 22:30; Stop 07/17/16 at 22:29; Status DC Multivitamins (Thera M Plus) 1 tab DAILY PO Last administered on 07/21/16 08: 44; Start 07/17/16 at 09:00 Ergocalciferol (Vitamin D2) 50,000 unit Fr PO Last administered on 07/17/16 08 :59; Start 07/17/16 at 09:00; Stop 07/20/16 at 08:34; Status DC Albuterol/ Ipratropium (Duoneb) 3 ml RTQID NEB Last administered on 07/20/16 11:34; Start 07/19/16 at 12:00; Stop 07/20/16 at 17:58; Status DC Neomycin/ Polymyxin/ Bacitracin (Triple Antibiotic Ointment) 1 pkt BID TP Last administered on 07/21/16 08:44; Start 07/19/16 at 18:30 Gadobutrol (Gadavist) 5.5 mmol 1X ONCE IV Last administered on 07/20/16 13:36 ; Start 07/20/16 at 13:15; Stop 07/20/16 at 13:21; Status DC Active Scripts Active Reported Multivitamins (Multivitamin) 1 Each Tablet 1 Tab PO DAILY Vitals/I & O Vital Sign - Last 24 Hours 07/20/16 07/20/16 07/20/16 07/20/16 15:00 19:51 20:00 23:38 Temp 97.0 98.0 97.8 97.0 98.0 97.8 Pulse 75 84 67 Resp 17 20 B/P 102/65 107/57 114/64 Pulse Ox 98 96 96 O2 Delivery Room Air Room Air Room Air Room Air 07/21/16 07/21/16 07/21/16 02:56 07:00 11:00 Temp 98.0 97.5 97.6 98.0 97.5 97.6 Pulse 70 72 81 Resp 18 18 B/P 108/58 115/79 122/65 Pulse Ox 96 97 95 O2 Delivery Room Air Room Air Room Air Intake and Output 07/20/16 07/20/16 07/21/16 15:00 23:00 07:00 Intake Total 240 ml 250 ml Output Total 800 ml 350 ml Balance 240 ml -550 ml -350 ml Images Brain MRI: FINDINGS There is mild motion degradation. There is no restricted diffusion suggestive of a recent infarct or cytotoxic edema. There is no intra-axial mass effect, midline shift, extra-axial fluid collection, or nodular parenchymal or leptomeningeal enhancement. Ventricular size is within normal limits. There is mild generalized supratentorial atrophy. There is preservation of the major arterial intracranial flow voids at the skull base. There is patchy minimal anterior right ethmoid air cell mucosal thickening. 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 Cerebellar tonsils are normal in location. There is nonspecific mild heterogeneity of the marrow of non expanded clivus. There is no significant abnormality of the pituitary gland. There is mild fluid of the inferior right mastoid air cells, also tiny focus on the left. IMPRESSION 1. There is no evidence of recent infarct or abnormal intracranial enhancement. 2. There is mild generalized supratentorial atrophy. Cervical MRI: FINDINGS There is motion degradation, limits accurate evaluation of the neural foramina. Cervical cord caliber is within normal limits without obvious or expansile signal abnormality, limited evaluation for subtle signal change due to motion artifact. There is moderate cervical dextroscoliosis. Cervical vertebral body stature is preserved. There is minimal grade 1 anterior spondylolisthesis at C3-4. There is mild to moderate degenerative disc disease C4-C5 and C5-C6 and minimally at C6-7. Trace posterior C5-C6 endplate edema is likely reactive/degenerative in etiology. There is no significant abnormality of the cervical medullary junction. C2-3: Spinal canal and neural foramina are adequate. C3-C4: There is fairly severe left facet degenerative change. There is minimal left uncovertebral degenerative change. Central canal is borderline 10 millimeters, very minimal narrowing of the far left lateral recess. Right neural foramen is adequate. There is at least moderate narrowing of the left neural foramen. C4-5: There is severe left facet hypertrophic change. Spinal canal and right neural foramen are adequate. There is at least moderate narrowing of the left neural foramen. C5-C6: There is buckling of the ligamentum flavum. There is posterior protrusion greatest centrally. Central canal is likely narrowed on the order of 8-9 millimeters. There is likely mild narrowing of the left neural foramen, right neural foramen probably adequate. C6-7: There is buckling of the ligamentum flavum. There is shallow posterior broad protrusion/bulge, central canal borderline 10 millimeters. Neural foramina are likely adequate. C7-T1: Spinal canal and neural foramina are adequate. IMPRESSION 1. There is mild spinal stenosis C5-C6. 2. Accurate evaluation of the neural foramina is limited due to motion degradation, suspected neural foramina compromise as stated greatest on the left at C3-C4 and C4-C5. 3. There is moderate cervical dextroscoliosis. There is minimal grade 1 anterior spondylolisthesis C3-4. 4. There is mild to moderate degenerative disc disease C4-5 and C5-C6 and to a lesser degree C6-7. 5. There is multilevel cervical facet degenerative change. SABI MOFFETT MD Jul 21, 2016 11:41
[2016-07-21 15:00] VITALS: BP 121/64
== END 2016-07-21 16:45 | disposition home health service (06) | DRG 602 ==
LOC: ER 19:48 → 5 NORTH 21:30
PROVIDERS: ADMIT Family Medicine; ATTEND Family Medicine
DX: L03.317 Cellulitis of buttock (principal); E43 Unspecified severe protein-calorie malnutrition; E41 Nutritional marasmus; R53.1 Weakness; Z68.21 Body mass index [BMI] 21.0-21.9, adult; E11.9 Type 2 diabetes mellitus without complications; E66.01 Morbid (severe) obesity due to excess calories; E86.0 Dehydration; S80.211A Abrasion, right knee, initial encounter; S80.212A Abrasion, left knee, initial encounter; F02.80 Dementia in other diseases classified elsewhere, unspecified severity, without behavioral disturbance, psychotic disturbance, mood disturbance, and anxiety; G31.09 Other frontotemporal neurocognitive disorder; H35.30 Unspecified macular degeneration; J44.9 Chronic obstructive pulmonary disease, unspecified; W18.39XA Other fall on same level, initial encounter; F17.210 Nicotine dependence, cigarettes, uncomplicated; I10 Essential (primary) hypertension; M41.9 Scoliosis, unspecified; M48.02 Spinal stenosis, cervical region; M50.321 Other cervical disc degeneration at C4-C5 level; R29.6 Repeated falls; Z83.3 Family history of diabetes mellitus; Y93.89 Activity, other specified; Y92.89 Other specified places as the place of occurrence of the external cause; Y99.8 Other external cause status; Z79.899 Other long term (current) drug therapy
CPT/HCPCS: 36415; 70553; 71010; 72141; 80048; 80053; 81001; 82306; 82607; 82746; 84443; 85007; 85027; 85651; 87086; 93005; 94640; 94760; J7620; 92526; 92610; 97116; 97530; 97535; 99285-25; A9585

== ENCOUNTER → 2017-05-11 | Outpatient (CLI) | payer MEDICARE | END | disposition home or self-care (01) | LOC: KCIC 14:32 | DX: I70.0 Atherosclerosis of aorta (principal); R63.4 Abnormal weight loss; R05 Cough; R91.8 Other nonspecific abnormal finding of lung field; Z87.891 Personal history of nicotine dependence | CPT/HCPCS: 71046 ==